=== PATIENT | female | born 1945 | race Asian ===

== ENCOUNTER 2025-03-04 17:11 | Inpatient (IN) | payer MEDICARE, OTHER ==
[~2025-03-04] VITALS: Ht 162.6 cm; Wt 78.9 kg
[2025-03-04] MEDS ORDERED: ACETAMINOPHEN 325 MG TABLET PO PRN (18:30)
[2025-03-04] MEDS ORDERED: MELATONIN 5 MG TABLET PO PRN (18:30)
[2025-03-04 20:08] VITALS: BP 140/78; PULSE 58; RESP 18; TEMP 97.9; O2SAT 97
[2025-03-04] MEDS ORDERED: DEXTROSE 50%-WATER 25 GM/50 ML SYRINGE IVP PRN (20:15)
[2025-03-04] MEDS ORDERED: OxyCODONE HCL 5 MG IR TABLET PO PRN (20:15)
[2025-03-04 21:00] VITALS: O2SAT 97
[2025-03-04] MEDS: METOPROLOL TARTRATE 25 MG TABLET PO SCH (21:00)
[2025-03-04] MEDS: ETHYL ALCOHOL 62% ANTISEPTIC NASAL SANITIZER 0.6 ML AMPUL NASAL SCH (21:16)
[2025-03-04] MEDS: ATORVASTATIN CALCIUM 20 MG TABLET PO SCH (21:16)
[2025-03-04] MEDS: INSULIN LISPRO 100 UNITS/ML SQ PRN (22:00)
[2025-03-05 02:41] LABS: GLUCOMETER DEV NAME(LOC) 2WR.1D; GLUCOSE,POINT OF CARE 177 MG/DL (70-110)
[2025-03-05 07:01] LABS: GLUCOMETER DEV NAME(LOC) 2WR.2C; GLUCOSE,POINT OF CARE 120 MG/DL (70-110)
[2025-03-05 07:12] LABS: PLATELET COUNT (AUTO) 217 K/uL (150-450); RED BLOOD CELL COUNT(AUTO) 4.72 MIL/uL (4.00-5.20); RED CELL DISTRIBUTION WIDTH 13.9 % (11.5-14.5); WHITE BLOOD COUNT (AUTO) 12.9 K/uL (4.5-11.0)
[2025-03-05 07:50] VITALS: BP 128/65; PULSE 55; RESP 18; TEMP 98.4; O2SAT 100
[2025-03-05 07:52] LABS: ASPARTATE AMINOTRANSFERASE 27 U/L (15-37); CALCIUM, TOTAL 7.8 mg/dL (8.8-10.5); CREATININE 0.44 mg/dL (0.60-1.30); GLOMERULAR FILTR. RATE CALC > 60 mL/min (>60); GLUCOSE,RANDOM 111 mg/dL (70-110); SODIUM SERUM 136 mmol/L (136-145); TOTAL PROTEIN, SERUM 6.0 g/dL (6.4-8.2); UREA NITROGEN, BLOOD 17 mg/dL (7-18)
[2025-03-05] MEDS: PANTOPRAZOLE SODIUM 40 MG DR TABLET PO SCH (08:05)
[2025-03-05] MEDS: LOSARTAN POTASSIUM 50 MG TABLET PO SCH (08:05)
[2025-03-05] MEDS: DOCUSATE SODIUM 100 MG CAPSULE PO SCH (08:06)
[2025-03-05] MEDS: APIXABAN 5 MG TABLET PO SCH (11:41)
[2025-03-05 13:00] LABS: GLUCOMETER DEV NAME(LOC) 2WR.2C; GLUCOSE,POINT OF CARE 114 MG/DL (70-110)
[2025-03-05 17:40] LABS: APPEARANCE,URINE HAZY (CLEAR); GLUCOSE, URINE (UA) NEGATIVE (NEGATIVE); LEUKOCYTE ESTERASE ,URINE LARGE (NEGATIVE); NITRATE,URINE NEGATIVE (NEGATIVE); OCCULT BLOOD,URINE NEGATIVE (NEGATIVE); SPECIFIC GRAVITIY, URINE 1.028 (1.003-1.030)
[2025-03-05 18:08] LABS: SQUAMOUS EPITHELIAL CELL,UR Few /LPF (None Seen)
[2025-03-05 19:11] LABS: GLUCOMETER DEV NAME(LOC) 2WR.1D; GLUCOSE,POINT OF CARE 131 MG/DL (70-110)
[2025-03-05 20:05] VITALS: BP 140/81; PULSE 59; RESP 16; TEMP 97.5; O2SAT 97
[2025-03-05] MEDS: SENNOSIDES 8.6 MG TABLET PO SCH (20:09)
[2025-03-05 21:50] VITALS: O2SAT 97
[2025-03-06 00:12] LABS: GLUCOMETER DEV NAME(LOC) 2WR.1D; GLUCOSE,POINT OF CARE 103 MG/DL (70-110)
[2025-03-06 05:18] VITALS: PULSE 58
[2025-03-06 06:55] LABS: GLUCOMETER DEV NAME(LOC) 2WR.1D; GLUCOSE,POINT OF CARE 114 MG/DL (70-110)
[2025-03-06 08:00] VITALS: BP 122/57; PULSE 52; RESP 18; TEMP 97.3; O2SAT 98
[2025-03-06] MEDS: CIPROFLOXACIN HCL 250 MG TABLET PO SCH (10:01)
[2025-03-06 11:41] VITALS: O2SAT 98
[2025-03-06 17:11] LABS: GLUCOMETER DEV NAME(LOC) 2WR.1D; GLUCOSE,POINT OF CARE 116 MG/DL (70-110)
[2025-03-06 20:00] VITALS: BP 120/55; PULSE 58; RESP 18; TEMP 97.5; O2SAT 97
[2025-03-06 21:21] LABS: GLUCOMETER DEV NAME(LOC) 2WR.1D; GLUCOSE,POINT OF CARE 130 MG/DL (70-110)
[2025-03-07 07:06] LABS: GLUCOMETER DEV NAME(LOC) 2WR.2C; GLUCOSE,POINT OF CARE 127 MG/DL (70-110)
[2025-03-07 08:15] VITALS: BP 123/53; PULSE 53; RESP 18; TEMP 97.6; O2SAT 97
[2025-03-07] MEDS: INFLUENZA VIRUS VACCINE TVS (6MO+) 2025-26/PF 45 MCG/0.5 ML SYRINGE IM. ONE (09:20)
[2025-03-07 09:41] LABS: PLATELET COUNT (AUTO) 246 K/uL (150-450); RED BLOOD CELL COUNT(AUTO) 4.62 MIL/uL (4.00-5.20); RED CELL DISTRIBUTION WIDTH 13.7 % (11.5-14.5); WHITE BLOOD COUNT (AUTO) 11.0 K/uL (4.5-11.0)
[2025-03-07 13:05] LABS: GLUCOMETER DEV NAME(LOC) 2WR.2C; GLUCOSE,POINT OF CARE 135 MG/DL (70-110)
[2025-03-07 13:30] VITALS: O2SAT 98
[2025-03-07 17:31] LABS: GLUCOMETER DEV NAME(LOC) 2WR.2C; GLUCOSE,POINT OF CARE 105 MG/DL (70-110)
[2025-03-07 20:05] VITALS: BP 118/58; PULSE 57; RESP 18; TEMP 98.2; O2SAT 96
[2025-03-07 20:50] LABS: GLUCOMETER DEV NAME(LOC) 2WR.1D; GLUCOSE,POINT OF CARE 156 MG/DL (70-110)
[2025-03-07 21:11] VITALS: BP 123/53; O2SAT 98
[2025-03-08 08:00] VITALS: BP 127/61; PULSE 52; RESP 19; TEMP 97.7; O2SAT 98
[2025-03-08 08:06] LABS: GLUCOMETER DEV NAME(LOC) 2WR.2C; GLUCOSE,POINT OF CARE 139 MG/DL (70-110)
[2025-03-08 08:30] VITALS: BP 124/59; PULSE 55; RESP 19
[2025-03-08 10:41] VITALS: BP 114/63; PULSE 60; RESP 18
[2025-03-08 13:01] LABS: GLUCOMETER DEV NAME(LOC) 2WR.2C; GLUCOSE,POINT OF CARE 122 MG/DL (70-110)
[2025-03-08 17:56] LABS: GLUCOMETER DEV NAME(LOC) 2WR.2C; GLUCOSE,POINT OF CARE 135 MG/DL (70-110)
[2025-03-08 20:00] VITALS: O2SAT 97
[2025-03-08 20:30] VITALS: BP 126/63; PULSE 61; RESP 18; TEMP 98.4
[2025-03-08 21:41] LABS: GLUCOMETER DEV NAME(LOC) 2WR.2C; GLUCOSE,POINT OF CARE 134 MG/DL (70-110)
[2025-03-08 22:05] VITALS: O2SAT 97
[2025-03-09 07:11] LABS: GLUCOMETER DEV NAME(LOC) 2WR.2C; GLUCOSE,POINT OF CARE 130 MG/DL (70-110)
[2025-03-09 08:00] VITALS: BP 133/70; PULSE 53; RESP 17; TEMP 98; O2SAT 99
[2025-03-09 12:11] LABS: GLUCOMETER DEV NAME(LOC) 2WR.1D; GLUCOSE,POINT OF CARE 137 MG/DL (70-110)
[2025-03-09 18:05] LABS: GLUCOMETER DEV NAME(LOC) 2WR.2C; GLUCOSE,POINT OF CARE 123 MG/DL (70-110)
[2025-03-09 20:10] VITALS: BP 117/61; PULSE 72; RESP 18; TEMP 98.8; O2SAT 97
[2025-03-09 22:01] LABS: GLUCOMETER DEV NAME(LOC) 2WR.2C; GLUCOSE,POINT OF CARE 140 MG/DL (70-110)
[2025-03-09 22:54] VITALS: O2SAT 97
[2025-03-10 07:01] LABS: GLUCOMETER DEV NAME(LOC) 2WR.1D; GLUCOSE,POINT OF CARE 131 MG/DL (70-110)
[2025-03-10 08:00] VITALS: BP_SYST 133; BP_SYST 136; BP_DIAS 69; BP_DIAS 78; PULSE 53; PULSE 75; RESP 18; TEMP 97.5; TEMP 97.9; O2SAT 97; O2SAT 98
[2025-03-10 10:21] VITALS: BP 117/63; PULSE 57; O2SAT 98
[2025-03-10 19:11] LABS: GLUCOMETER DEV NAME(LOC) 2WR.1D; GLUCOSE,POINT OF CARE 177 MG/DL (70-110)
[2025-03-10 20:10] VITALS: BP 126/60; PULSE 59; RESP 18; TEMP 97.5; O2SAT 98
[2025-03-10 20:12] VITALS: O2SAT 98
[2025-03-11 07:40] LABS: GLUCOMETER DEV NAME(LOC) 2WR.2C; GLUCOSE,POINT OF CARE 153 MG/DL (70-110)
[2025-03-11 08:00] VITALS: BP 137/60; PULSE 54; RESP 17; TEMP 98.2; O2SAT 100
[2025-03-11 19:20] LABS: GLUCOMETER DEV NAME(LOC) 2WR.2C; GLUCOSE,POINT OF CARE 131 MG/DL (70-110)
[2025-03-11 20:00] VITALS: BP 120/62; PULSE 65; RESP 17; TEMP 98.1; O2SAT 98
[2025-03-11 20:17] VITALS: BP 122/61; PULSE 67
[2025-03-12 07:21] LABS: GLUCOMETER DEV NAME(LOC) 2WR.1D; GLUCOSE,POINT OF CARE 106 MG/DL (70-110)
[2025-03-12 07:50] VITALS: BP 106/58; PULSE 58; RESP 18; TEMP 97.7; O2SAT 100
[2025-03-12 13:25] LABS: GLUCOMETER DEV NAME(LOC) 2WR.1D; GLUCOSE,POINT OF CARE 124 MG/DL (70-110)
[2025-03-12 16:39] LABS: PLATELET COUNT (AUTO) 215 K/uL (150-450); RED BLOOD CELL COUNT(AUTO) 4.11 MIL/uL (4.00-5.20); RED CELL DISTRIBUTION WIDTH 14.2 % (11.5-14.5); WHITE BLOOD COUNT (AUTO) 7.4 K/uL (4.5-11.0)
[2025-03-12 16:58] LABS: CALCIUM, TOTAL 8.7 mg/dL (8.8-10.5); CREATININE 0.61 mg/dL (0.60-1.30); GLOMERULAR FILTR. RATE CALC > 60 mL/min (>60); GLUCOSE,RANDOM 117 mg/dL (70-110); SODIUM SERUM 143 mmol/L (136-145); UREA NITROGEN, BLOOD 11 mg/dL (7-18)
[2025-03-12 18:45] LABS: GLUCOMETER DEV NAME(LOC) 2WR.1D; GLUCOSE,POINT OF CARE 161 MG/DL (70-110)
[2025-03-12 20:06] VITALS: BP 124/66; PULSE 67; RESP 18; TEMP 97.9; O2SAT 98
[2025-03-12] MEDS: APIXABAN 5 MG TABLET PO SCH (20:08)
[2025-03-13 08:00] VITALS: BP 125/73; PULSE 67; RESP 18; TEMP 98.2; O2SAT 99
[2025-03-13] MEDS ORDERED: LOSA-382 PO (10:47)
[2025-03-13] MEDS ORDERED: ATOR20TA65 PO (10:47)
[2025-03-13] MEDS ORDERED: DOCU-385 PO (10:47)
[2025-03-13] MEDS ORDERED: METF-1211 PO (10:47)
[2025-03-13] MEDS ORDERED: AMLO-258 PO (10:47)
[2025-03-13] MEDS ORDERED: APIX5TAB PO (10:47)
[2025-03-13] MEDS ORDERED: INSU100V SQ (10:47)
[2025-03-13] MEDS ORDERED: SENN-374 PO (10:47)
[2025-03-13] MEDS ORDERED: PANT-31 PO (10:47)
[2025-03-13 12:05] LABS: GLUCOMETER DEV NAME(LOC) 2WR.2C; GLUCOSE,POINT OF CARE 102 MG/DL (70-110)
[2025-03-13 17:20] LABS: GLUCOMETER DEV NAME(LOC) 2WR.2C; GLUCOSE,POINT OF CARE 121 MG/DL (70-110)
[2025-03-13 20:02] VITALS: BP 110/58; PULSE 80; RESP 18; TEMP 98.1; O2SAT 99
[2025-03-13 21:55] VITALS: O2SAT 99
[2025-03-14 06:36] LABS: GLUCOMETER DEV NAME(LOC) 2WR.1D; GLUCOSE,POINT OF CARE 104 MG/DL (70-110)
[2025-03-14 08:00] VITALS: BP 133/59; PULSE 58; RESP 19; TEMP 97.8; O2SAT 97
[2025-03-14 12:10] LABS: GLUCOMETER DEV NAME(LOC) 2WR.2C; GLUCOSE,POINT OF CARE 121 MG/DL (70-110)
[2025-03-14 19:55] LABS: GLUCOMETER DEV NAME(LOC) 2WR.2C; GLUCOSE,POINT OF CARE 110 MG/DL (70-110)
[2025-03-14 20:05] VITALS: BP 117/65; PULSE 82; RESP 19; TEMP 97.8; O2SAT 98
[2025-03-14 21:31] VITALS: O2SAT 98
[2025-03-15 07:01] LABS: GLUCOMETER DEV NAME(LOC) 2WR.2C; GLUCOSE,POINT OF CARE 107 MG/DL (70-110)
[2025-03-15 08:00] VITALS: BP 112/67; PULSE 58; RESP 18; TEMP 98.4; O2SAT 99
[2025-03-15] MEDS: INFLUENZA VIRUS VACCINE TVS (6MO+) 2025-26/PF 45 MCG/0.5 ML SYRINGE IM. ONE (10:30)
== END 2025-03-15 10:00 | disposition home health service (06) | DRG 58 ==
LOC: 2WR 18:41
PROVIDERS: ADMIT Physical Medicine & Rehabilitation; ATTEND Physical Medicine & Rehabilitation
DX: D32.0 Benign neoplasm of cerebral meninges (principal); E44.0 Moderate protein-calorie malnutrition; I82.462 Acute embolism and thrombosis of left calf muscular vein; D64.9 Anemia, unspecified; E11.9 Type 2 diabetes mellitus without complications; E66.9 Obesity, unspecified; E78.5 Hyperlipidemia, unspecified; Z74.09 Other reduced mobility; G31.84 Mild cognitive impairment of uncertain or unknown etiology; H53.2 Diplopia; I10 Essential (primary) hypertension; R33.9 Retention of urine, unspecified; N39.0 Urinary tract infection, site not specified; R51.9 Headache, unspecified; R26.2 Difficulty in walking, not elsewhere classified; R42 Dizziness and giddiness; Z79.01 Long term (current) use of anticoagulants; Z83.3 Family history of diabetes mellitus; Z68.29 Body mass index [BMI] 29.0-29.9, adult
CPT/HCPCS: 80048; 80053; 81001; 82962; 85025; 87081; 87086; 90686; 92507; 92523; 92610; 93970; 97110; 97112; 97116; 97163; 97167; 97530; 97535; 99366